=== PATIENT | male | born 1975 | race Caucasian/White ===

== ENCOUNTER 2018-11-21 12:05 | Observation (INO) | payer OTHER ==
[2018-11-21] MEDS ORDERED: ASPIRIN 81 MG PO STA (12:58)
[2018-11-21] MEDS ORDERED: SODIUM CHLORIDE 0.9% 500 ML 500 ML IV STA (12:58)
[2018-11-21] MEDS ORDERED: NITROGLYCERIN OINT 1 INCH/GM PACKET TOPICAL STA (12:58)
[2018-11-21] MEDS ORDERED: PANTOPRAZOLE 40 MG/10 ML VIAL IVP STA (12:59)
--- NOTE | 2018-11-21 13:16 | XR ---
EXAMINATION TYPE: XR chest 2V DATE OF EXAM: 11/21/2018 COMPARISON: NONE HISTORY: Chest pain TECHNIQUE: Frontal and lateral views of the chest are obtained on 3 images. FINDINGS: There is no focal air space opacity, pleural effusion, or pneumothorax seen. The cardiac silhouette size is within normal limits. There are overlying cardiac leads. The osseous structures a re intact. IMPRESSION: No acute cardiopulmonary process.
--- NOTE | 2018-11-21 13:19 | ED ---
General Adult HPI - General Chief complaint: Chest Pain Stated complaint: chest pain Time Seen by Provider: 11/21/18 12:30 Source: patient, RN notes reviewed Mode of arrival: ambulatory - History of Present Illness Initial comments: This is a 43-year-old male who presents emergency Department with a strong family history of heart disease. Patient's father had a heart attack at 40. Patient states yesterday he had a little bit of chest pain but went away. Patient states this morning he woke up with quite a bit of chest pain seemed to radiate to the left and the right. Patient does state that taking a deep breath seems to make the chest pain worse. Patient states he does have a history of significant gastric reflux but this felt different. Patient doesn't think he sh ort of breath but states it does hurt to take a deep breath. Patient denies any radiation of the pain to the arm neck or back. Patient denies any diaphoresis. Patient denies any nausea. Patient denies any vomiting. Patient denies any recent fever chills or cough. Patient denies any swelling to the legs. - Related Data Home Medications Medication Instructions Recorded Confirmed No Known Home Medications 01/10/15 11/21/18 Allergies Allergy/AdvReac Type Severity Reaction Status Date / Time No Known Allergies Allergy Verified 11/21/18 12:50 Review of Systems ROS Statement: Those systems with pertinent positive or pertinent negative responses have been documented in the HPI. ROS Other: All systems not noted in ROS Statement are negative. Past Medical History Past Medical History: No Reported History History of Any Multi-Drug Resistant Organisms: None Reported Past Surgical History: Orthopedic Surgery Past Psychological History: No Psychological Hx Reported Smoking Status: Never smoker Past Alcohol Use History: Heavy Past Drug Use History: None Reported General Exam - General Exam Comments Initial Comments: GENERAL: Patient is well-developed and well-nourished. Patient is nontoxic and well- hydrated and is in mild distress. ENT: Neck is soft and supple. No significant lymphadenopathy is noted. Oropharynx is clear. Moist mucous membranes. Neck has full range of motion without eliciting any pain. EYES: The sclera were anicteric and conjunctiva were pink and moist. Extraocular movements were intact and pupils were equal round and reactive to light. Eyelids were unremarkable. PULMONARY: Unlabored respirations. Good breath sounds bilaterally. No audible rales rho nchi or wheezing was noted. CARDIOVASCULAR: There is a regular rate and rhythm without any murmurs gallops or rubs. ABDOMEN: Soft and nontender with normal bowel sounds. No palpable organomegaly was noted. There is no palpable pulsatile mass. SKIN: Skin is clear with no lesions or rashes and otherwise unremarkable. NEUROLOGIC: Patient is alert and oriented x3. Cranial nerves II through XII are grossly intact. Motor and sensory are also intact. Normal speech, volume and content. Symmetrical smile. MUSCULOSKELETAL: Normal extremities with adequate strength and full range of motion. LYMPHATICS: No significant lymphadenopathy is noted PSYCHIATRIC: Normal psychiatric evaluation. Course Vital Signs 11/21/18 11/21/18 11/21/18 12:29 13:27 14:29 Temperature 98.4 F Pulse Rate 62 79 76 Respiratory 18 16 16 Rate Blood Pressure 152/105 165/106 138/101 O2 Sat by Pulse 98 99 Oximetry Medical Decision Making - Medical Decision Making EKG shows normal sinus rhythm at 61 bpm MS interval 146 QRS is 82 QT interval 400 QTC is 42 per patient's EKG shows no ST segment elevation or depression. Chest x-ray shows no acute normalities. I spoke with because he agreed to admit the patient admitted the patient wrote admitting orders. Patient's chest pain seemed to subside while he was here in the emergency department. Patient could not related necessarily to the nitroglycerin paste - Lab Data Result diagrams: 11/21/18 13:06 11/21/18 13:06 Lab Results 11/21/18 11/21/18 11/21/18 Range/Units 13:06 13:06 13:06 WBC 6.0 (3.8-10.6) k/uL RBC 5.61 (4.30-5.90) m/uL Hgb 16.9 (13.0-17.5) gm/dL Hct 49.6 (39.0-53.0) % MCV 88.4 (80.0-100.0) fL MCH 30.2 (25.0-35.0) pg MCHC 34.1 (31.0-37.0) g/dL RDW 16.8 H (11.5-15.5) % Plt Count 141 L (150-450) k/uL Neutrophils % 74 % Lymphocytes % 17 % Monocytes % 5 % Eosinophils % 2 % Basophils % 1 % Neutrophils # 4.5 (1.3-7.7) k/uL Lymphocytes # 1.0 (1.0-4.8) k/uL Monocytes # 0.3 (0-1.0) k/uL Eosinophils # 0.2 (0-0.7) k/uL Basophils # 0.0 (0-0.2) k/uL Anisocytosis Slight PT 10.8 (9.0-12.0) sec INR 1.0 (<1.2) APTT 26.0 (22.0-30.0) sec D-Dimer 0.33 (<0.60) mg/L FEU Sodium 141 (137-145) mmol/L Potassium 4.9 (3.5-5.1) mmol/L Chloride 105 (98-107) mmol/L Carbon Dioxide 25 (22-30) mmol/L Anion Gap 11 mmol/L BUN 19 (9-20) mg/dL Creatinine 0.97 (0.66-1.25) mg/dL Est GFR (CKD-EPI)AfAm >90 (>60 ml/min/1.73 sqM) Est GFR (CKD-EPI)NonAf >90 (>60 ml/min/1.73 sqM) Glucose 108 H (74-99) mg/dL Calcium 10.6 H (8.4-10.2) mg/dL Magnesium 2.3 (1.6-2.3) mg/dL Total Bilirubin 0.8 (0.2-1.3) mg/dL AST 43 (17-59) U/L ALT 67 (21-72) U/L Alkaline Phosphatase 44 (38-126) U/L Troponin I (0.000-0.034) ng/mL NT-Pro-B Natriuret Pep pg/mL Total Protein 7.9 (6.3-8.2) g/dL Albumin 4.6 (3.5-5.0) g/dL Amylase (30-110) U/L Lipase (23-300) U/L 11/21/18 11/21/18 11/21/18 Range/Units 13:06 13:06 14:28 WBC (3.8-10.6) k/uL RBC (4.30-5.90) m/uL Hgb (13.0-17.5) gm/dL Hct (39.0-53.0) % MCV (80.0-100.0) fL MCH (25.0-35.0) pg MCHC (31.0-37.0) g/dL RDW (11.5-15.5) % Plt Count (150-450) k/uL Neutrophils % % Lymphocytes % % Monocytes % % Eosinophils % % Basophils % % Neutrophils # (1.3-7.7) k/uL Lymphocytes # (1.0-4.8) k/uL Monocytes # (0-1.0) k/uL Eosinophils # (0-0.7) k/uL Basophils # (0-0.2) k/uL Anisocytosis PT (9.0-12.0) sec INR (<1.2) APTT (22.0-30.0) sec D-Dimer (<0.60) mg/L FEU Sodium (137-145) mmol/L Potassium (3.5-5.1) mmol/L Chloride (98-107) mmol/L Carbon Dioxide (22-30) mmol/L Anion Gap mmol/L BUN (9-20) mg/dL Creatinine (0.66-1.25) mg/dL Est GFR (CKD-EPI)AfAm (>60 ml/min/1.73 sqM) Est GFR (CKD-EPI)NonAf (>60 ml/min/1.73 sqM) Glucose (74-99) mg/dL Calcium (8.4-10.2) mg/dL Magnesium (1.6-2.3) mg/dL Total Bilirubin (0.2-1.3) mg/dL AST (17-59) U/L ALT (21-72) U/L Alkaline Phosphatase (38-126) U/L Troponin I <0.012 (0.000-0.034) ng/mL NT-Pro-B Natriuret Pep 34 pg/mL Total Protein (6.3-8.2) g/dL Albumin (3.5-5.0) g/dL Amylase 83 (30-110) U/L Lipase 172 (23-300) U/L Disposition Clinical Impression: Chest pain Disposition: [facility] Referrals: None,Stated [Primary Care Provider] - 1-2 days Time of Disposition: 15:32
[2018-11-21 13:31] LABS: Anisocytosis Slight; Basophils % (A) 1 %; Eosinophils # (A) 0.2 k/uL (0-0.7); Eosinophils % (A) 2 %; HCT 49.6 % (39.0-53.0); HGB 16.9 gm/dL (13.0-17.5); Lymphocytes % (A) 17 %; MCH 30.2 pg (25.0-35.0); MCHC 34.1 g/dL (31.0-37.0); MCV 88.4 fL (80.0-100.0); Monocytes # (A) 0.3 k/uL (0-1.0); Monocytes % (A) 5 %; Neutrophils # (A) 4.5 k/uL (1.3-7.7); Neutrophils % (A) 74 %; Platelet Count 141 k/uL (150-450); RBC 5.61 m/uL (4.30-5.90); RDW 16.8 % (11.5-15.5)
[2018-11-21 13:33] LABS: D-Dimer 0.33 mg/L FEU (<0.60); Prothrombin Time 10.8 sec (9.0-12.0)
[2018-11-21 13:38] LABS: ALT 67 U/L (21-72); AST 43 U/L (17-59); African American GFR (CKD) >90 (>60 ml/min/1.73 sqM); Albumin 4.6 g/dL (3.5-5.0); Alkaline Phosphatase 44 U/L (38-126); Anion Gap 11 mmol/L; Blood Urea Nitrogen 19 mg/dL (9-20); Calcium 10.6 mg/dL (8.4-10.2); Carbon Dioxide 25 mmol/L (22-30); Chloride 105 mmol/L (98-107); Glucose 108 mg/dL (74-99); Magnesium 2.3 mg/dL (1.6-2.3); Non-African American GFR(CKD) >90 (>60 ml/min/1.73 sqM); Potassium 4.9 mmol/L (3.5-5.1); Sodium 141 mmol/L (137-145); Total Bilirubin 0.8 mg/dL (0.2-1.3); Total Protein 7.9 g/dL (6.3-8.2)
--- NOTE | 2018-11-21 14:46 | P.HPIM ---
History of Present Illness 43-year-old pleasant gentleman came in with compensative chest pain had episode yesterday and had an episode today, nonexertional mostly in the epigastric area and sharp in nature there is some pleuritic component to it, acidosis some shortness of breath and moderate pain which is much better now very mild now, not related to food, denied any diaphoresis denied any lightheadedness associated patient does have significant family history of coronary artery disease with myocardial infarction in his father at age 40. Because of which patient is concerned and came to the hospital. Patient d-dimer is negative troponin is negative EKG shows sinus rhythm without any acute ST-T wave changes patient doesn't have any previous cardiac history. Patient doesn't smoke does chew tobacco which he quit about a week ago. Patient chest pain is mostly in the epigastric area goes across the upper abdomen and lower chest area denied any back pain never had any back issues Review of Systems REVIEW OF SYSTEMS: CONSTITUTIONAL: No fever, no malaise, no fatigue. HEENT: No recent visual problems or hearing problems. Denied any sore throat. CARDIOVASCULAR: No orthopnea, PND, no palpitations, no syncope. PULMONARY: No shortness of breath, no cough, no hemoptysis. GASTROINTESTINAL: No diarrhea, no nausea, no vomiting, no abdominal pain. NEUROLOGICAL: No headaches, no weakness, no numbness. HEMATOLOGICAL: Denies any bleeding or petechiae. GENITOURINARY: Denies any burning micturition, frequency, or urgency. MUSCULOSKELETAL/RHEUMATOLOGICAL: Denies any joint pain, swelling, or any muscle pain. ENDOCRINE: Denies any polyuria or polydipsia. The rest of the 14-point review of systems is negative. Past Medical History Past Medical History: No Reported History History of Any Multi-Drug Resistant Organisms: None Reported Past Surgical History: Orthopedic Surgery Past Psychological History: No Psychological Hx Reported Smoking Status: Never smoker Past Alcohol Use History: Heavy Past Drug Use History: None Reported Medications and Allergies Home Medications Medication Instructions Recorded Confirmed Type No Known Home Medications 01/10/15 11/21/18 History Allergies Allergy/AdvReac Type Severity Reaction Status Date / Time No Known Allergies Allergy Verified 11/21/18 12:50 Physical Exam Vitals: Vital Signs Temp Pulse Resp BP Pulse Ox 11/21/18 14:29 76 16 138/101 99 11/21/18 13:27 79 16 165/106 11/21/18 12:29 98.4 F 62 18 152/105 98 Intake and Output 11/20/18 11/21/18 11/21/18 22:59 06:59 14:59 Other: Weight 120.519 kg PHYSICAL EXAMINATION: GENERAL: The patient is alert and oriented x3, not in any acute distress. Well developed, well nourished. HEENT: Pupils are round and equally reacting to light. EOMI. No scleral icterus. No conjunctival pallor. Normocephalic, atraumatic. No pharyngeal erythema. No thyromegaly. CARDIOVASCULAR: S1 and S2 present. No murmurs, rubs, or gallops. PULMONARY: Chest is clear to auscultation, no wheezing or crackles. ABDOMEN: Soft, nontender, nondistended, normoactive bowel sounds. No palpable organomegaly. MUSCULOSKELETAL: No joint swelling or deformity. EXTREMITIES: No cyanosis, clubbing, or pedal edema. NEUROLOGICAL: Gross neurological examination did not reveal any focal deficits. SKIN: No rashes. Results CBC & Chem 7: 11/21/18 13:06 11/21/18 13:06 Labs: Abnormal Lab Results - Last 24 Hours (Table) 11/21/18 11/21/18 Range/Units 13:06 13:06 RDW 16.8 H (11.5-15.5) % Plt Count 141 L (150-450) k/uL Glucose 108 H (74-99) mg/dL Calcium 10.6 H (8.4-10.2) mg/dL Assessment and Plan Plan: -Chest pain: Appears to be atypical noncardiac will get 2 more sets of troponins and EKGs will rule out acute coronary syndromes and unstable angina. Patient will be evaluated by cardiology inpatient versus outpatient stress test as per cardiology patient either has musculoskeletal chest pain or gastric is. Reflux disease patient will be started on Protonix. -Rule out pulmonary embolism normal d-dimer
[2018-11-21 15:02] LABS: Amylase 83 U/L (30-110)
[2018-11-21] MEDS ORDERED: NITROGLYCERIN SL TABS 0.4 MG TAB SUBLINGUAL PRN (15:33)
[2018-11-21 17:02] VITALS: BMI 34.1
[2018-11-21] MEDS: NITROGLYCERIN OINT 1 INCH/GM PACKET TOPICAL SCH ×2 (18:28→23:28)
[2018-11-21] MEDS: ACETAMINOPHEN TAB 325 MG TAB PO PRN (20:46)
[2018-11-22 03:24] LABS: Cholesterol 193 mg/dL (<200); HDL Cholesterol 50 mg/dL (40-60); LDL Cholesterol,Calculated 122 mg/dL (0-99); Triglycerides 105 mg/dL (<150)
[2018-11-22] MEDS: NITROGLYCERIN OINT 1 INCH/GM PACKET TOPICAL SCH (05:34)
[2018-11-22] MEDS: ACETAMINOPHEN TAB 325 MG TAB PO PRN (08:07)
[2018-11-22 08:45] VITALS: BP 126/80; PULSE 68; RESP 16; TEMP 97.7
[2018-11-22] MEDS ORDERED: PANTOPRAZOLE 40 MG/10 ML VIAL IVP SCH (09:00)
[2018-11-22] MEDS ORDERED: ASPIRIN 325 MG TAB PO SCH (09:00)
--- NOTE | 2018-11-22 10:39 | ECHOF ---
Referral Reason:cp, heavy alcohol use, sob MEASUREMENTS -------- HEIGHT: 188.0 cm WEIGHT: 120.2 kg BP: 106/61 RVIDd: 3.1 cm (< 3.3) IVSd: 1.7 cm (0.6 - 1.1) LVIDd: 4.6 cm (3.9 - 5.3) LVPWd: 1.2 cm (0.6 - 1.1) IVSs: 2.0 cm LVIDs: 3.1 cm LVPWs: 2.1 cm LAESV Index (A-L): 13.12 ml/m Ao Diam: 3.5 cm (2.0 - 3.7) AV Cusp: 2.2 cm (1.5 - 2.6) LA Diam: 3.3 cm (2.7 - 3.8) EPSS: 0.6 cm MV E Harish: 0.91 m/s MV DecT: 202 ms MV A Harish: 0.49 m/s MV E/A Ratio: 1.84 RAP: 5.00 mmHg RVSP: 15.71 mmHg MV EF SLOPE: 73.38 mm/s (70 - 150) MV EXCURSION: 1.59 cm (> 18.000) FINDINGS -------- Resting bradycardia (HR<60bpm). This was a technically difficult study with suboptimal views. The left ventricular size is normal. There is moderate concentric left ventricular hypertrophy. O verall left ventricular systolic function is normal with, an EF between 55 - 60 %. The diastolic fi lling pattern is normal for the age of the patient. The right ventricle is normal in size. Left atrium is normal size by volume. The right atrium was not well visualized. Lumason used Interatrial and interventricular septum intact. The aortic valve was not well visualized. There is no evidence of aortic regurgitation. There is no evidence of aortic stenosis. No mitral regurgitation. Trace tricuspid regurgitation present. There is no evidence of pulmonary hypertension. The right ventricular systolic pressure, as measured by Doppler, is 15.71mmHg. There is no pulmonic regurgitation present. The aortic root size is normal. IVC not well visualized There is no pericardial effusion. CONCLUSIONS -------- 1. Resting bradycardia (HR<60bpm). 2. This was a technically difficult study with suboptimal views. 3. The left ventricular size is normal. 4. There is moderate concentric left ventricular hypertrophy. 5. Overall left ventricular systolic function is normal with, an EF between 55 - 60 %. 6. The diastolic filling pattern is normal for the age of the patient. 7. The right ventricle is normal in size. 8. Left atrium is normal size by volume. 9. The right atrium was not well visualized. 10. Lumason used 11. Interatrial and interventricular septum intact. 12. The aortic valve was not well visualized. 13. There is no evidence of aortic regurgitation. 14. There is no evidence of aortic stenosis. 15. No mitral regurgitation. 16. Trace tricuspid regurgitation present. 17. There is no evidence of pulmonary hypertension. 18. The right ventricular systolic pressure, as measured by Doppler, is 15.71mmHg. 19. There is no pulmonic regurgitation present. 20. The aortic root size is normal. 21. IVC not well visualized 22. There is no pericardial effusion. ANODIC OPERATOR: Sharyn Caballero RDCS
--- NOTE | 2018-11-22 10:41 | P.CRDCN ---
History of Present Illness History of present illness: This is a pleasant 43-year-old male with no significant past medical history. He does admit to drinking 6 beers every other day and more excessively on the weekends. He also has significant family history of premature coronary artery disease with his father having his first event in his 40s. He denies personal history of coronary artery disease, hypertension, dyslipidemia or diabetes mellitus. Patient is seen in consultation secondary to chest discomfort. He states he first noticed this discomfort on Wednesday morning when he woke up in the morning it was described as a sharp pain in the midsternal/epigastric region that was worse with deep inspiration. He got up and moved around and the pain actually seemed to improve with activity. Then again on Wednesday when he woke up he felt the same discomfort. There is no radiation to the arm, back, neck or jaw. This was not associated with shortness of breath, dizziness, nausea, vomiting or diaphoresis. He states he did do some very heavy lifting on Wednesday of last week with his father and his father also had similar type discomfort. He also describes symptoms recently of upper respiratory type illness with non-productive cough and mild shortness of breath. His pain is not associated with the cough or shortness of breath. His pain is not worse with cough that is reproducible on deep palpation. EKG reveals sinus mechanism with sinus arrhythmia. No acute ST or T wave abnormalities noted. Chest x-ray is negative for acute cardiopulmonary process. Laboratory data reviewed, WBC 6, hemoglobin 16.9, platelets 141, d-dimer 0.33, sodium 141, potassium 4.9, creatinine 0.97, magnesium 2.3, cardiac enzymes negative 3, proBNP 34, LDL 122. He takes no daily cardiac medications. Most recent echocardiogram obtained in 2016 revealed preserved LV systolic function with ejection fraction 55-60%, mild MR and mild TR. Most recent stress test performed in 2016 was negative and not suggestive of ischemia. At the time of my exam: CONSTITUTIONAL: Denies fever. Denies chills. EYES: Denies blurred vision. Denies vision changes. Denies eye pain. EARS, NOSE, MOUTH & THROAT: Denies headache. Denies sore throat. Denies ear pain. CARDIOVASCULAR: Complains of reproducible and pleuritic chest pain. Denies shortness of breath. Denies orthopnea. Denies PND. Denies palpitations. RESPIRATORY: Complains of cough. GASTROINTESTINAL: Denies abdominal pain. Denies diarrhea. Denies constipation. Denies nausea. Denies vomiting. MUSCULOSKELETAL: Denies myalgias. INTEGUMENTARY: Denies pruitis. Denies rash. NEUROLOGIC: Denies numbness. Denies tingling. Denies weakness. PSYCHIATRIC: Denies anxiety. Denies depression. ENDOCRINE: Denies fatigue. Denies weight change. Denies polydipsia. Denies polyurina. GENITOURINARY: Denies burning, hematuria or urgency with micturation. HEMATOLOGIC: Denies history of anemia. Denies bleeding. Blood pressure 126/80 heart rate 68 afebrile maintaining oxygen saturation on room air GENERAL: This is a 43-year-old male in no apparent distress at the time of my examination. HEENT: Head is atraumatic, normocephalic. Pupils are equal, round. Sclerae anicteric. Conjunctivae are clear. Mucous membranes of the mouth are moist. Neck is supple. There is no jugular venous distention. No carotid bruit is heard. LUNGS: Clear to auscultation no wheezes, rales or rhonchi. Mild chest wall tenderness is noted on palpation and with deep breathing. HEART: Regular rate and rhythm without murmurs, rubs or gallops. S1 and S2 heard. ABDOMEN: Soft, nontender. Bowel sounds are heard. No organomegaly noted. EXTREMITIES: No evidence of peripheral edema and no calf tenderness noted. VASCULAR: Radial and dorsalis pedis pulses palpated, no evidence of clubbing. NEUROLOGIC: Patient is awake, alert and oriented x3. ASSESSMENT Chest pain, pleuritic. An acute coronary event has been ruled out. Symptoms suggestive of musckuloskeletal strain. Alcohol abuse Significant family history for premature coronary artery disease Dyslipidemia PLAN An acute coronary event has been ruled out. Discontinue nitroglycerin paste. Obtain 2D echocardiogram and doppler study to assess cardiac structure and function. Alcohol cessation recommended to patient and his . Rationale explained. Outpatient stress testing once his upper respiratory illness resolves. If echo is normal he can be discharged from a cardiac perspective. Thank you kindly for this consultation. Nurse Practitioner note has been reviewed, I agree with a documented findings and plan of care. Patient was seen and examined. Past Medical History Past Medical History: No Reported History, Asthma, Chest Pain / Angina, Hypertension, Respiratory Disorder, Skin Disorder Additional Past Medical History / Comment(s): broncitis as child, excema on right ankle/calf History of Any Multi-Drug Resistant Organisms: None Reported Past Surgical History: Orthopedic Surgery Additional Past Surgical History / Comment(s): Hand surgery Past Anesthesia/Blood Transfusion Reactions: No Reported Reaction Past Psychological History: No Psychological Hx Reported Smoking Status: Never smoker Past Alcohol Use History: Heavy Past Drug Use History: None Reported - Past Family History Father Family Medical History: Myocardial Infarction ([place]) Medications and Allergies Home Medications Medication Instructions Recorded Confirmed Type No Known Home Medications 01/10/15 11/21/18 History Allergies Allergy/AdvReac Type Severity Reaction Status Date / Time No Known Allergies Allergy Verified 11/21/18 12:50 Physical Exam Vitals: Vital Signs Temp Pulse Pulse Pulse Resp BP BP 11/22/18 08:00 97.7 F 68 16 126/80 11/22/18 03:44 65 18 11/22/18 03:05 97.5 F L 65 18 106/61 11/22/18 00:00 68 18 11/21/18 23:18 98 F 68 18 131/76 11/21/18 20:00 85 18 11/21/18 19:12 98.3 F 85 18 146/92 11/21/18 16:42 97.7 F 62 18 143/90 11/21/18 15:43 76 16 132/94 11/21/18 14:29 76 16 138/101 11/21/18 13:27 79 16 165/106 11/21/18 12:29 98.4 F 62 18 152/105 Pulse Ox 11/22/18 08:00 96 11/22/18 03:44 11/22/18 03:05 97 11/22/18 00:00 11/21/18 23:18 97 11/21/18 20:00 11/21/18 19:12 96 11/21/18 16:42 98 11/21/18 15:43 99 11/21/18 14:29 99 11/21/18 13:27 11/21/18 12:29 98 Intake and Output 11/21/18 11/22/18 11/22/18 22:59 06:59 14:59 Intake Total 236 Balance 236 Intake: Oral 236 Other: Voiding Method Toilet # Voids 1 Results 11/21/18 13:06 11/21/18 13:06 Cardiac Enzymes 11/21/18 11/21/18 11/21/18 Range/Units 13:06 13:06 18:49 AST 43 (17-59) U/L Troponin I <0.012 <0.012 (0.000-0.034) ng/mL 11/22/18 Range/Units 00:57 AST (17-59) U/L Troponin I <0.012 (0.000-0.034) ng/mL Coagulation 11/21/18 Range/Units 13:06 PT 10.8 (9.0-12.0) sec APTT 26.0 (22.0-30.0) sec Lipids 11/21/18 Range/Units 13:06 Triglycerides 105 (<150) mg/dL Cholesterol 193 (<200) mg/dL HDL Cholesterol 50 (40-60) mg/dL CBC 11/21/18 Range/Units 13:06 WBC 6.0 (3.8-10.6) k/uL RBC 5.61 (4.30-5.90) m/uL Hgb 16.9 (13.0-17.5) gm/dL Hct 49.6 (39.0-53.0) % Plt Count 141 L (150-450) k/uL Comprehensive Metabolic Panel 11/21/18 Range/Units 13:06 Sodium 141 (137-145) mmol/L Potassium 4.9 (3.5-5.1) mmol/L Chloride 105 (98-107) mmol/L Carbon Dioxide 25 (22-30) mmol/L BUN 19 (9-20) mg/dL Creatinine 0.97 (0.66-1.25) mg/dL Glucose 108 H (74-99) mg/dL Calcium 10.6 H (8.4-10.2) mg/dL AST 43 (17-59) U/L ALT 67 (21-72) U/L Alkaline Phosphatase 44 (38-126) U/L Total Protein 7.9 (6.3-8.2) g/dL Albumin 4.6 (3.5-5.0) g/dL Current Medications Generic Name Dose Route Start Last Admin Trade Name Freq PRN Reason Stop Dose Admin Acetaminophen 650 mg 11/21/18 20:41 11/22/18 08:07 Tylenol Tab PO 650 mg Q4HR PRN Administration Fever and/ or Mild Pain Aspirin 325 mg 11/22/18 09:00 Aspirin PO DAILY NERISSA Nitroglycerin 0.4 mg 11/21/18 15:33 Nitrostat SUBLINGUAL Q5M PRN Chest Pain Pantoprazole Sodium 40 mg 11/22/18 09:00 Protonix IVP DAILY NERISSA Intake and Output 11/21/18 11/22/18 11/22/18 22:59 06:59 14:59 Intake Total 236 Balance 236 Intake: Oral 236 Other: Voiding Method Toilet # Voids 1 11/21/18 13:06 11/21/18 13:06
--- NOTE | 2018-11-22 13:55 | P.DS ---
Providers Date of admission: 11/21/18 15:34 Attending physician: Vinny Syed Consults: 11/21/18 15:34 Consult Physician Urgent Consulting Provider: [facility] Consult Reason/Comments: Chest pain Do you want consulting provider notified?: Yes Primary care physician: Stated None Hospital Course: patient was admitted for chest pain rule out a concurrent syndromes patient chest pain appears to be atypical musculoskeletal in nature had an echocardiogram which did not show any wall motion amount is normal ejection fraction patient will be discharged today. PHYSICAL EXAMINATION: GENERAL: The patient is alert and oriented x3, not in any acute distress. Well developed, well nourished. HEENT: Pupils are round and equally reacting to light. EOMI. No scleral icterus. No conjunctival pallor. Normocephalic, atraumatic. No pharyngeal erythema. No thyromegaly. CARDIOVASCULAR: S1 and S2 present. No murmurs, rubs, or gallops. PULMONARY: Chest is clear to auscultation, no wheezing or crackles. ABDOMEN: Soft, nontender, nondistended, normoactive bowel sounds. No palpable organomegaly. MUSCULOSKELETAL: No joint swelling or deformity. EXTREMITIES: No cyanosis, clubbing, or pedal edema. NEUROLOGICAL: Gross neurological examination did not reveal any focal deficits. SKIN: No rashes. Please refer to my dictation of which we have from yesterday for further details Plan - Discharge Summary Discharge Rx Participant: No New Discharge Prescriptions: No Action No Known Home Medications Discharge Medication List No Known Home Medications 01/10/15 [History] Follow up Appointment(s)/Referral(s): None,Stated [Primary Care Provider] - 1-2 days Yassine Granda MD [STAFF PHYSICIAN] - 12/08/18 3:30 pm Patient Instructions/Handouts: Chest Pain (DC) Discharge Disposition: HOME SELF-CARE
== END 2018-11-22 11:39 | disposition home or self-care (01) ==
LOC: EC 12:05 → 1SOBS 15:34
PROVIDERS: ADMIT Internal Medicine; ATTEND Internal Medicine
DX: R07.89 Other chest pain (principal); K21.9 Gastro-esophageal reflux disease without esophagitis; E78.5 Hyperlipidemia, unspecified; R06.02 Shortness of breath; F10.10 Alcohol abuse, uncomplicated; Z87.891 Personal history of nicotine dependence; Z82.49 Family history of ischemic heart disease and other diseases of the circulatory system
CPT/HCPCS: 96374; 99285; 36415; 93005; 93306; 85379; 83880; 80061; 80053; 82150; 83690; 83735; 84484 ×2; 85025; 85610; 85730; 71046; G0378 ×2; C9113; Q9950

== ENCOUNTER → 2019-10-10 | Outpatient (CLI) | payer OTHER | END | disposition home or self-care (01) | LOC: LABWHC1 14:23 | PROVIDERS: ATTEND Internal Medicine | DX: Z11.59 Encounter for screening for other viral diseases (principal); Z20.828 Contact with and (suspected) exposure to other viral communicable diseases ==